=== PATIENT | male | born 1970 | race Caucasian/White ===

== ENCOUNTER 2022-07-20 23:05 | Emergency (ER) | payer OTHER ==
[~2022-07-20] VITALS: Ht 193 cm; Wt 117.9 kg
[2022-07-20] MEDS ORDERED: ABILIFY10 MG PO (23:13)
[2022-07-20] MEDS ORDERED: JARDIANCE25 MG PO (23:13)
[2022-07-20] MEDS ORDERED: LASIX20 MG PO (23:13)
[2022-07-20] MEDS ORDERED: RYBELSUS7 MG PO (23:14)
[2022-07-20] MEDS ORDERED: DIVALPROEX SOD500 M1 PO (23:14)
[2022-07-20] MEDS ORDERED: [UNRECOGNIZED DRUG - CODE] T (23:14)
[2022-07-20] MEDS ORDERED: VISTARIL50 MG PO (23:15)
[2022-07-20] MEDS ORDERED: SEROQUEL400 M1 PO (23:16)
[2022-07-20] MEDS ORDERED: SEROQUEL300 MG PO (23:16)
[2022-07-20] MEDS ORDERED: MELATONIN1 M5 PO (23:16)
[2022-07-20] MEDS ORDERED: ZONEGRAN100 MG PO (23:17)
[2022-07-21 01:03] LABS: BASO % 0.4 % (0.0-1.0); EOS # 0.1 10*3/uL (0.0-0.4); EOS % 0.5 % (1.0-4.0); HEMATOCRIT 45.2 % (42.0-52.0); LYMPH # 3.1 10*3/uL (1.3-4.4); LYMPH % 28.2 % (27.0-41.0); MEAN CELL VOLUME 83.9 fl (80.0-94.0); MEAN CORPUSCULAR HGB 28.2 pg (27.0-31.0); MEAN CORPUSCULAR HGB CONC 33.6 g/dl (33.0-37.0); MEAN PLATELET VOLUME 9.9 fl (9.6-12.3); MONO # 0.8 10*3/uL (0.1-1.0); MONO % 7.4 % (3.0-9.0); NEUT # 6.9 10*3/uL (2.3-7.9); NEUT % 63.3 % (47.0-73.0); PLATELET COUNT AUTOMATED 192 10*3/uL (130-400); RED BLOOD COUNT 5.39 10*6/uL (4.50-5.90); RED CELL DISTRI WIDTH 13.7 % (0-14.5); WHITE BLOOD COUNT 10.9 10*3/uL (4.8-10.8)
[2022-07-21 01:14] LABS: BILIRUBIN Negative (Negative); BLOOD Negative (Negative); CLARITY Clear (Clear); COLOR Yellow (Yellow); GLUCOSE 3+ (Negative); KETONE 1+ (Negative); LEUKO ESTERASE Negative (Negative); NITRITE Negative (Negative); SPECIFIC GRAVITY >= 1.030 (1.001-1.030)
[2022-07-21 01:18] LABS: ALKALINE PHOSPHATASE 55 U/L (46-116); BUN 13 mg/dl (9-23); CHLORIDE 104 mmol/L (98-107); POTASSIUM 3.7 mmol/L (3.4-5.1); SGPT/ALT 17 U/L (10-49); TOTAL PROTEIN 6.8 gm/dL (6.0-8.0)
[2022-07-21 01:20] LABS: URINE AMPHETAMINES Negative (1000ng/ml); URINE BARBITURATES Negative (200ng/ml); URINE BENZODIAZEPINES Negative (200ng/ml); URINE CANNABINOIDS (THC) Negative (50ng/ml); URINE COCAINE Negative (300ng/ml); URINE METHADONE Negative (300ng/ml); URINE OPIATES Negative (300ng/ml); URINE PHENCYCLIDINE Negative (25ng/ml)
[2022-07-21 01:42] LABS: RBC 0-2 rbc/hpf (0-2)
== END 2022-07-21 05:58 | disposition home or self-care (01) ==
LOC: ED 23:05
PROVIDERS: Emergency Medicine
DX: S09.90XA Unspecified injury of head, initial encounter (principal); Z79.899 Other long term (current) drug therapy; Y04.8XXA Assault by other bodily force, initial encounter; Y93.89 Activity, other specified; Y92.89 Other specified places as the place of occurrence of the external cause; Y99.8 Other external cause status; Z88.8 Allergy status to other drugs, medicaments and biological substances